=== PATIENT | male | born 1960 | race Two or more races ===

== ENCOUNTER 2020-08-14 08:59 | Outpatient (CLI) | payer OTHER | END 2020-08-14 23:59 | disposition home or self-care (01) | LOC: LAB 08:59 | PROVIDERS: ATTEND Specialist | DX: Z01.812 Encounter for preprocedural laboratory examination (principal); Z20.828 Contact with and (suspected) exposure to other viral communicable diseases | CPT/HCPCS: 87426; C9803 ×2; U0003 ==

== ENCOUNTER 2020-08-19 05:06 | Day surgery (SDC) | payer OTHER ==
--- NOTE | 2020-08-19 05:30 | NUR ---
MS/RN OPENING NOTES: PT ARRIVED TO THE UNIT A/OX4. LITHUANIAN SPEAKING BUT ABLE TO UNDERSTAND AND SPEAK MINIMAL [place]. NO SOB NOTED, NO S/S OF DISTRESS, BREATHING EVEN AND UNLABORED. ON ROOM AIR, SATURATING WELL. AMBULATORY WITH STEADY GAIT. ARRIVED TO THE UNIT AT 0530. INSERTED IV ON THE LEFT AC #20G INTACT AND PATENT. ALL SURGICAL CONSENTS AND ANESTHESIA SIGNED. ALL PREOP CHECKLIST DONE. SAFETY MEASURES IMPLEMENTED. BED IN LOW, LOCKED POSITION WITH SR UPX2. CALL LIGHT WITHIN REACH. WILL CONTINUE MONITORING PT ACCORDINGLY.
--- NOTE | 2020-08-19 06:20 | NUR ---
MS/RN NOTES: PT. WAS PICKED UP BY OR STAFF [employer] TO GO DOWN TO OR FOR PROCEDURE. KEPT NPO STATUS SINCE MIDNIGHT.
[2020-08-19] MEDS ORDERED: ANESTHESIA TRAY IN PYXIS 1 EA TRAY MC ONE (06:22)
[2020-08-19] MEDS ORDERED: EPINEPHRINE (1:1000) 1 MG/ML AMPUL ONE (06:23)
[2020-08-19] MEDS ORDERED: FENTANYL PF 100MCG/2ML AMPUL ONE (06:40)
[2020-08-19] MEDS ORDERED: SUCCINYLCHOLINE CHLORIDE 20 MG/ML VIAL ONE (06:40)
[2020-08-19] MEDS ORDERED: LIDOCAINE HCL/MPF 1% 30 ML VIAL IJ ONE (06:44)
--- NOTE | 2020-08-19 08:45 | NUR ---
PT ARRIVED IN THE UNIT FROM RIGHT SHOULDER ARTHROPLASTY SURGERY. PT REMAINS A/OX4. ICELANDIC SPEAKING ONLY. IN STABLE CONDITION.
--- NOTE | 2020-08-19 11:45 | NUR ---
PT LEFT THE UNIT, AND DISCHARGED TO HOME. DISCHARGE EXIT CARE AND INSTRUCTIONS PROVIDED. PT PICKED UP BY FAMILY IN STABLE CONDITION.
== END 2020-08-19 18:00 | disposition home or self-care (01) ==
LOC: DS 05:06 → UNDOADMIN 05:07 → MED 05:07 → UNDODISIN 12:00 → DS 18:00
PROVIDERS: ATTEND Specialist
DX: M75.41 Impingement syndrome of right shoulder (principal); M94.211 Chondromalacia, right shoulder; M65.811 Other synovitis and tenosynovitis, right shoulder; F17.200 Nicotine dependence, unspecified, uncomplicated; Z79.899 Other long term (current) drug therapy
CPT/HCPCS: 29822; 29824; 82962; 87081; 88304; 88311; A4217; A4565; J0171; J0330; J1100; J1885; J2370; J2405; J2704; J3010; J3490 ×2; G0378